=== PATIENT | female | born 1980 | race African-American/Black ===

== ENCOUNTER 2020-02-01 09:59 | Emergency (ER) | payer OTHER, SELFPAY ==
[2020-02-01 10:05] VITALS: BP 113/73; PULSE 78; RESP 16; TEMP 36.6; O2SAT 100
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
[2020-02-01] MEDS: KETOROLAC (*BKC) 60 MG/2 ML VIAL IM (11:35)
[2020-02-01 11:52] VITALS: BP 127/70; PULSE 88; RESP 18; TEMP 36.6; O2SAT 99
== END 2020-02-01 11:53 | disposition home or self-care (01) ==
PROVIDERS: Emergency Provider Emergency Medicine
DX: S06.0X0A Concussion without loss of consciousness, initial encounter (principal); W51.XXXA Accidental striking against or bumped into by another person, initial encounter
CPT/HCPCS: 96372; 99283; J1885

== ENCOUNTER 2024-06-17 11:49 | Emergency (ER) | payer BC, SELFPAY ==
--- NOTE | 2024-06-17 11:51 | ED.URI ---
HPI - URI/Sore Throat General Chief Complaint: Upper Respiratory Infection Stated Complaint: fatigued,cough,fever Time Seen by Provider: 06/17/24 11:51 Source: patient, RN notes reviewed and old records reviewed Mode of arrival: ambulatory Limitations: no limitations History of Present Illness HPI Narrative: Patient presents with complaints of fever, cough, sore throat, runny nose, tiredness. She reports that symptoms got much worse a couple of days ago. She has been taking Tylenol with moderate relief. States that for a couple of weeks she has had some sinus pain and congestion, complains of thick yellow mucus Related Data Home Medications ?Medication ?Instructions ?Recorded ?Confirmed ?Last Taken ?Type bupropion HCl 300 mg 24 hr tablet, 300 mg PO DAILY 06/17/24 06/17/24 Unknown History extended release conjugated estrogens 0.625 mg/gram 1 applic topical BID 06/17/24 06/17/24 Unknown History vaginal cream (Premarin) esterified 1 tablet PO DAILY 06/17/24 06/17/24 Unknown History estrogens-methyltestosterone 1.25 mg-2.5 mg tablet fluoxetine 10 mg capsule 10 mg PO DAILY 06/17/24 06/17/24 Unknown History thyroid (pork) 180 mg tablet 180 mg PO DAILY 06/17/24 06/17/24 Unknown History ([place] Thyroid) trazodone 50 mg tablet 50 mg PO DAILY 06/17/24 06/17/24 Unknown History upadacitinib 30 mg tablet,extended 30 mg PO DAILY 06/17/24 06/17/24 Unknown History release 24 hr (Rinvoq) Allergies Allergy/AdvReac Type Severity Reaction Status Date / Time No Known Allergies Allergy Verified 06/17/24 11:50 Review of Systems Review of Systems: All systems reviewed & are unremarkable except as noted in HPI and below Constitutional: Constitutional: Reports no additional constitutional complaints, Reports body ache(s), Reports chills, Reports fever(s), Reports headache(s) and Reports lethargy ENT: Reports system reviewed and no additional complaints, except as documented, Reports nasal congestion, Reports nasal discharge, Reports sinus pain, Reports sinus pressure and Reports sore throat Cardiovascular: Cardiovascular: Reports no additional cardiovascular complaints Respiratory: Respiratory: Reports no additional respiratory complaints and Reports cough Gastrointestinal: Gastrointestinal: Reports no additional gastrointestinal complaints PMFSH Past Medical History Medical History Healthy female adult Surgical History Surgical History No history of previous surgery Social History Social History Smoking status: Never smoker Comments At the time of my signature, I reviewed and agree with the nursing past medical, surgical, social, and family history. There is no relevant family history pertinent to the patient complaint. Exam Const: General: cooperative, no acute distress, alert and awake Orientation/consciousness: oriented to person, oriented to place and oriented to time HENMT: Head: normal to inspection Ears: TM abnormal dull bilateral Face and sinus: sinus tenderness frontal Mouth: Yes moist mucous membranes Throat: postnasal drainage Resp: Effort & Inspection: normal respiratory effort and able to speak in complete sentences Auscultation: clear to auscultation bilaterally, no crackles, no rales, no rhonchi and no wheezes Cardio: Palpation: normal PMI Rate: regular rate Rhythm: regular rhythm Heart sounds: S1 normal heart sound present and S2 normal heart sound present Neuro: General: oriented to person, oriented to place and oriented to time Cranial nerves: Yes CN's II-XII intact bilaterally Psych: Appearance: grossly normal Thought process: Normal thought process present Insight: Good insight present (Psych) Judgement: Good judgement present (Psych) Course Course Level of Care: Express Care Visit Vital Signs Vital signs: Reviewed MDM - URI/Sore Throat MDM Narrative Medical decision making narrative: Negative COVID, negative flu, negative strep. Patient does complain of sinus pain and congestion for 2 weeks. Will treat his sinusitis. Supportive care measures discussed. Antibiotic prescribe Discharge instructions reviewed with patient, as well as provided in writing per nursing staff. The instructions also include specific and strict return/GO TO THE ER as well as f/u information. All questions have been answered, and the patient deny any further questions with discharge and discharge plan. Some parts of this dictation were generated by voice recognition software and may contain typographical and/or grammatical inaccuracies. Differential Diagnosis Differential diagnosis: Likely upper respiratory infection, sinusitis, influenza and pharyngitis Medical Records Attestation: I reviewed the patient's medical records. Lab Data Attestation: I reviewed the patient's lab results. Discharge Plan Discharge Clinical Impression: Sinusitis Qualifiers: Sinusitis location: frontal Chronicity: acute Recurrence: not specified as recurrent Qualified Code(s): J01.10 - Acute frontal sinusitis, unspecified Patient Disposition: Home, Self-Care Condition: Stable Instructions: Antibiotic Form, Sinusitis (ED) Additional Instructions: Take medication as prescribed. Follow with primary care provider. Emergency department for new or worse symptoms Patient Language: [place] Prescriptions: New amoxicillin-pot clavulanate 875-125 mg tablet 1 tablet PO Q12H Qty: 14 0RF fluconazole 150 mg tablet 150 mg PO ONCE Qty: 1 0RF Rx Instructions: as a single dose No Action bupropion HCl 300 mg tablet extended release 24 hr 300 mg PO DAILY Premarin 0.625 mg/gram cream 1 applic topical BID estrogens-methyltestosterone 1.25-2.5 mg tablet 1 tablet PO DAILY fluoxetine 10 mg capsule 10 mg PO DAILY [place] Thyroid 180 mg tablet 180 mg PO DAILY trazodone 50 mg tablet 50 mg PO DAILY Rinvoq 30 mg tablet extended release 24 hr 30 mg PO DAILY Follow-up/Referrals: UNKNOWN,DOCTOR [Primary Care Provider] - Time of Disposition: 12:58
[2024-06-17 12:05] VITALS: BP 129/88; PULSE 80; RESP 16; TEMP 36.2; O2SAT 100
[2024-06-17 12:57] LABS: EDCOVIDSCREEN Negative (Negative); EDINFLUASCREEN Negative (Negative); EDINFLUBSCREEN Negative (Negative); EDSTREPNEGPOS1 Negative (Negative)
== END 2024-06-17 13:04 | disposition home or self-care (01) ==
PROVIDERS: Emergency Provider Nurse Practitioner Family
DX: J01.10 Acute frontal sinusitis, unspecified (principal); Z79.899 Other long term (current) drug therapy; Z20.822 Contact with and (suspected) exposure to COVID-19
CPT/HCPCS: 87426; 87804; 87880; 99213; G0463

== ENCOUNTER 2024-07-29 17:31 | Emergency (ER) | payer BC, SELFPAY ==
--- NOTE | 2024-07-29 17:33 | ED.FEMALEGU ---
HPI - Female Genitourinary General Chief complaint: Urogenital-Female Stated complaint: blood in urine,fever,right side stomach pain Time Seen by Provider: 07/29/24 17:32 Source: patient Mode of arrival: ambulatory Limitations: no limitations History of Present Illness HPI Narrative: Rosanna is a 43-year-old female patient presenting to the clinic today with complaints of blood in her urine, burning with urination, urinary frequency with low urine output, fever, and right-sided abdominal discomfort/flank pain. She reports symptoms have been going on for the past 2-3 days. Fever as high as 101 today. Also endorsing some nausea without vomiting. Denies any vaginal discharge or concern for STIs. Related Data Home Medications ?Medication ?Instructions ?Recorded ?Confirmed ?Last Taken ?Type bupropion HCl 300 mg 24 hr tablet, 300 mg PO DAILY 06/17/24 07/29/24 Unknown History extended release conjugated estrogens 0.625 mg/gram 1 applic topical BID 06/17/24 07/29/24 Unknown History vaginal cream (Premarin) esterified 1 tablet PO DAILY 06/17/24 07/29/24 Unknown History estrogens-methyltestosterone 1.25 mg-2.5 mg tablet fluoxetine 10 mg capsule 10 mg PO DAILY 06/17/24 07/29/24 Unknown History thyroid (pork) 180 mg tablet 180 mg PO DAILY 06/17/24 07/29/24 Unknown History ([place] Thyroid) trazodone 50 mg tablet 50 mg PO DAILY 06/17/24 07/29/24 Unknown History upadacitinib 30 mg tablet,extended 30 mg PO DAILY 06/17/24 07/29/24 Unknown History release 24 hr (Rinvoq) Allergies Allergy/AdvReac Type Severity Reaction Status Date / Time No Known Allergies Allergy Verified 07/29/24 17:35 Review of Systems Review of Systems: Pertinent positives per HPI. Patient denies any rash, headache, visual changes, dizziness, cough, runny nose, sore throat, shortness of breath, chest pain, palpitations, vomiting, diarrhea, constipation PMFSH Past Medical History Medical History Healthy female adult Surgical History Surgical History No history of previous surgery Social History Social History Smoking status: Never smoker Comments At the time of my signature, I reviewed and agree with the nursing past medical, surgical, social, and family history. There is no relevant family history pertinent to the patient complaint. Exam Narrative: General: Well-developed, well nourished, in no apparent distress. Head: Normocephalic, atraumatic. Cardio: Regular rate and rhythm, s1 and s2 normal, no murmur appreciated. Resp: Clear to auscultation bilaterally, no rhonchi, rales, wheezing or rubs. Abdomen: Soft, pliable, bowel sounds present in all quadrants, right upper and right lower tender to palpation, no organomegly, positive right CVAT tenderness. Course Course Emergency Course: Portions of this record may have been created with voice recognition software. Level of Care: Express Care Visit Vital Signs Vital signs: Vital Signs Temperature 37.8 C H 07/29/24 17:40 Pulse Rate 86 07/29/24 17:40 Respiratory Rate 20 07/29/24 17:40 Blood Pressure 134/73 07/29/24 17:40 Pulse Oximetry 99 07/29/24 17:40 Oxygen Delivery Room Air 07/29/24 17:40 Temperature 37.8 C H 07/29/24 17:40 Pulse Rate 86 07/29/24 17:40 Respiratory Rate 20 07/29/24 17:40 Blood Pressure 134/73 07/29/24 17:40 Pulse Oximetry 99 07/29/24 17:40 Oxygen Delivery Room Air 07/29/24 17:40 Vital signs reviewed MDM - Female Genitourinary MDM Narrative Medical decision making narrative: At the time of visit patient is resting comfortably on the exam table. Patient appears to be nontoxic. Labs: Urinalysis shows leukocytes, blood, protein. We will send urine for culture Plan: I suspect patient has right pyelonephritis. Prescription for Augmentin, Diflucan, and Zofran was sent to the pharmacy. Supportive measures were discussed with the patient and they voiced understanding discharge instructions and agrees to treatment plan. Return precautions reviewed Differential Diagnosis Differential diagnosis: Likely urinary tract infection, ruptured ovarian cyst, cystitis and other (Pyelonephritis, appendicitis, cholecystitis, ovarian cyst) Lab Data Labs: Lab Results 07/29/24 Range/Units 17:40 POC Urine Color Yellow POC Urine Clarity Cloudy POC Urine pH 6.0 POC Ur Specif [place] 1.010 POC Urine Protein 2+ (Negative) POC Ur Glucose (UA) Negative (Negative) POC Urine Ketones Negative (Negative) POC Urine Blood 2+ (Negative) POC Urine Nitrite Positive (Negative) POC Urine Bilirubin Negative (Negative) POC Urine Urobilinogen 0.2 POC U Leukocyte Esteras 3+ (Negative) Discharge Plan Discharge Clinical Impression: Pyelonephritis Patient Disposition: Home Condition: Stable Instructions: Antibiotic Form, Kidney Infection (ED) Additional Instructions: Take Augmentin, Zofran, and Diflucan as prescribed Increase fluids and stay well hydrated Wipe front to back. May use wet wipes. Avoid tub baths If sexually active- pee before and after intercourse. Wear cotton panties Avoid tight clothing up against the genitals Follow up with your PCP in 1 week if symptoms persist. Patient Language: [place] Prescriptions: New amoxicillin-pot clavulanate 875-125 mg tablet 1 tablet PO Q12H 7 Days Qty: 14 0RF ondansetron 4 mg tablet,disintegrating 4 mg PO Q6H PRN (Reason: nausea and vomiting) 3 Days Qty: 12 0RF fluconazole 150 mg tablet 150 mg PO ONCE Qty: 2 0RF Rx Instructions: as a single dose. May repeat in 72 hours if needed. No Action bupropion HCl 300 mg tablet extended release 24 hr 300 mg PO DAILY Premarin 0.625 mg/gram cream 1 applic topical BID estrogens-methyltestosterone 1.25-2.5 mg tablet 1 tablet PO DAILY fluoxetine 10 mg capsule 10 mg PO DAILY [place] Thyroid 180 mg tablet 180 mg PO DAILY trazodone 50 mg tablet 50 mg PO DAILY Rinvoq 30 mg tablet extended release 24 hr 30 mg PO DAILY Follow-up/Referrals: UNKNOWN,DOCTOR [Primary Care Provider] - Stand Alone Forms: Work/School Release IP Time of Disposition: 17:50 Quality NIHSS Nursing Documentation ED NIHSS nursing documentation: reviewed/agree
[2024-07-29 17:40] VITALS: BP 134/73; PULSE 86; RESP 20; TEMP 37.8; O2SAT 99
[2024-07-29 17:51] LABS: EDUAAPPEAR Cloudy; EDUABILI Negative (Negative); EDUABLOOD 2+ (Negative); EDUACOLOR1 Yellow; EDUAGLUCOSE Negative (Negative); EDUAKETONE Negative (Negative); EDUALEUKO 3+ (Negative); EDUANITRATE Positive (Negative); EDUAPROTEIN 2+ (Negative); EDUAUROBILI 0.2
== END 2024-07-29 17:54 | disposition home or self-care (01) ==
PROVIDERS: Emergency Provider Nurse Practitioner Family
DX: N12 Tubulo-interstitial nephritis, not specified as acute or chronic (principal)
CPT/HCPCS: 81003; 87086; 87186; 99213; G0463

== ENCOUNTER 2024-12-20 08:14 | Emergency (ER) | payer BC, SELFPAY ==
[2024-12-20 08:21] VITALS: BP 108/72; PULSE 80; RESP 16; TEMP 36.1; O2SAT 100
[2024-12-20 08:29] LABS: EDUAAPPEAR Cloudy; EDUABILI Negative (Negative); EDUABLOOD 2+ (Negative); EDUACOLOR1 Dark; EDUAGLUCOSE Negative (Negative); EDUAKETONE Trace (Negative); EDUALEUKO 3+ (Negative); EDUANITRATE Negative (Negative); EDUAPH 8.0; EDUAPROTEIN 2+ (Negative); EDUASPGRAVITY 1.025; EDUAUROBILI 0.2
--- NOTE | 2024-12-20 08:51 | ED.FEMALEGU ---
HPI - Female Genitourinary General Chief complaint: Urogenital-Female Stated complaint: urinary irritation Time Seen by Provider: 12/20/24 08:30 Source: patient and RN notes reviewed Mode of arrival: ambulatory Limitations: no limitations History of Present Illness HPI Narrative: 44-year-old female presents Express Care complaining of urinary symptoms for 7 days. Patient reports having dysuria, increased frequency, hesitancy, back pain, chills, and body aches. Patient denies any fevers, abdominal pain, nausea, vomiting, diarrhea, vaginal bleeding, vaginal discharge. Patient has not taken anything [id number] for symptoms. Patient patient has a history of Crohn's and a thyroidectomy due to cancer. Related Data Home Medications ?Medication ?Instructions ?Recorded ?Confirmed ?Last Taken ?Type bupropion HCl 300 mg 24 hr tablet, 300 mg PO DAILY 06/17/24 12/20/24 Unknown History extended release conjugated estrogens 0.625 mg/gram 1 applic topical BID 06/17/24 07/29/24 Unknown History vaginal cream (Premarin) esterified 1 tablet PO DAILY 06/17/24 07/29/24 Unknown History estrogens-methyltestosterone 1.25 mg-2.5 mg tablet fluoxetine 10 mg capsule 10 mg PO DAILY 06/17/24 12/20/24 Unknown History thyroid (pork) 180 mg tablet 180 mg PO DAILY 06/17/24 12/20/24 Unknown History ([place] Thyroid) trazodone 50 mg tablet 50 mg PO DAILY 06/17/24 12/20/24 Unknown History upadacitinib 30 mg tablet,extended 30 mg PO DAILY 06/17/24 12/20/24 Unknown History release 24 hr (Rinvoq) Allergies Allergy/AdvReac Type Severity Reaction Status Date / Time No Known Allergies Allergy Verified 12/20/24 08:19 Review of Systems Review of Systems: CONSTITUTIONAL: Denies fever, to or sweats. Positive for body aches and chills. EYES: Denies visual changes, redness, or discharge. ENT: Denies rhinorrhea, congestion, sore throat, or otalgia. CARDIOVASCULAR: Denies chest pain, palpitations, or edema. RESPIRATORY: Denies cough or dyspnea. GASTROINTESTINAL: Denies abdominal pain, nausea, vomiting, or diarrhea. GENITOURINARY: Positive for dysuria, hesitancy, increased frequency. Negative for hematuria. SKIN: Denies rash or itching. MUSCULOSKELETAL: Positive for low back pain. Negative for joint pain, or myalgia. NEUROLOGIC: Denies headache, numbness, or weakness. PSYCHIATRIC: Denies anxiety or depression. All other systems reviewed are negative, except as documented in HPI. [facility] Past Medical History Medical History Healthy female adult Surgical History Surgical History No history of previous surgery Social History Social History Smoking status: Never smoker Comments At the time of my signature, I reviewed and agree with the nursing past medical, surgical, social, and family history. There is no relevant family history pertinent to the patient complaint. Exam Narrative: GENERAL: This is a well-nourished, well-developed adult, in no apparent distress. They are non ill-appearing, nontoxic appearing. Afebrile. HEAD: normocephalic, atraumatic. EYES: Sclera clear/white. Vision is grossly intact. Conjunctiva normal bilaterally. Extraocular movements intact. EARS: External ears normal,Hearing grossly intact. NOSE: External nose normal THROAT: Mucous membranes moist NECK: Normal range of motion CARDIOVASCULAR: Regular rate and rhythm. Normal S1-S2. No clicks, gallops, rubs, murmurs. RESPIRATORY: Respiratory rate normal, respiratory effort nonlabored, no respiratory distress. Lung sounds clear to auscultation throughout. Lung sounds equal bilaterally. No adventitious lung sounds. GASTROINTESTINAL: Abdomen soft, flat, non-tender, nondistended. Bowel sounds are active. No hepato-splenomegaly, or palpable masses. No guarding or rigidity. No rebound tenderness. SKIN: warm, Dry, intact with no suspicious lesions or rash, good texture and turgor. NEURO: awake, alert, and oriented to person, place and time. There were no obvious focal neurologic abnormalities. EXTREMITIES: No joint tenderness, effusion, or edema noted. BACK: Nontender without deformity. No CVA tenderness. Course Course Emergency Course: Portions of this record may have been created with voice recognition software Level of Care: Express Care Visit Vital Signs Vital signs: Vital Signs Temperature 97.0 F L 0924/25 08:21 Pulse Rate 80 12/20/24 08:21 Respiratory Rate 16 12/20/24 08:21 Blood Pressure 108/72 12/20/24 08:21 Pulse Oximetry 100 12/20/24 08:21 Oxygen Delivery Room Air 12/20/24 08:21 Temperature 97.0 F L 12/20/24 08:21 Pulse Rate 80 12/20/24 08:21 Respiratory Rate 16 12/20/24 08:21 Blood Pressure 108/72 12/20/24 08:21 Pulse Oximetry 100 12/20/24 08:21 Oxygen Delivery Room Air 12/20/24 08:21 MDM - Female Genitourinary MDM Narrative Medical decision making narrative: Urine dipstick shows 2+ blood 3+ leukocytes. No nitrates, 2+ protein. Urine culture pending. Patient's symptoms clinically consistent with urinary tract infection. Go ahead and treat her with cephalexin. Discussed physical exam findings. Advised supportive measures and signs/symptoms to go to the ER. Pt is appropriate for outpt treatment and f/u. Differential Diagnosis Differential diagnosis: Likely urinary tract infection, cystitis and other (Pyelonephritis) Lab Data Attestation: I reviewed the patient's lab results. Labs: Lab Results 12/20/24 Range/Units 08:22 POC Urine Color Dark POC Urine Clarity Cloudy POC Urine pH 8.0 POC Ur Specif [place] 1.025 POC Urine Protein 2+ (Negative) POC Ur Glucose (UA) Negative (Negative) POC Urine Ketones Trace (Negative) POC Urine Blood 2+ (Negative) POC Urine Nitrite Negative (Negative) POC Urine Bilirubin Negative (Negative) POC Urine Urobilinogen 0.2 POC U Leukocyte Esteras 3+ (Negative) Discharge Plan Discharge Clinical Impression: Urinary tract infection Qualifiers: Urinary tract infection type: site unspecified Hematuria presence: with hematuria Qualified Code(s): N39.0 - Urinary tract infection, site not specified Patient Disposition: Home Condition: Stable Instructions: Antibiotic Form, Urinary Tract Infection in Women (ED) Additional Instructions: Take the antibiotic as prescribed The urine will be sent of for a culture to identify what type of bacteria is causing your infection. If the culture shows that the antibiotic will not get rid of your infection, you will be notified and a new antibiotic will be called in for you. Increase water intake you will need to follow up with your PCP 3-5 days. Go to the ER for any worsening symptoms, abdominal pain, fevers, nausea, vomiting, or any other concerns Patient Language: [place]ian Prescriptions: New cephalexin 500 mg capsule 500 mg PO BID 5 Days Qty: 10 0RF No Action bupropion HCl 300 mg tablet extended release 24 hr 300 mg PO DAILY Premarin 0.625 mg/gram cream 1 applic topical BID estrogens-methyltestosterone 1.25-2.5 mg tablet 1 tablet PO DAILY fluoxetine 10 mg capsule 10 mg PO DAILY [place] Thyroid 180 mg tablet 180 mg PO DAILY trazodone 50 mg tablet 50 mg PO DAILY Rinvoq 30 mg tablet extended release 24 hr 30 mg PO DAILY Follow-up/Referrals: Armin,Milad Barnett MD [Primary Care Provider, Unknown] Stand Alone Forms: Work/School Release IP Time of Disposition: 08:46
== END 2024-12-20 08:50 | disposition home or self-care (01) ==
PROVIDERS: PCP Internal Medicine
DX: N39.0 Urinary tract infection, site not specified (principal); R31.9 Hematuria, unspecified; K50.90 Crohn's disease, unspecified, without complications; E89.0 Postprocedural hypothyroidism; Z85.850 Personal history of malignant neoplasm of thyroid
CPT/HCPCS: 81003; 87086; 99213; G0463